=== PATIENT | male | born 1945 | race Caucasian/White ===

== ENCOUNTER 2017-08-27 10:27 | Outpatient (CLI) | payer MEDICARE, OTHER ==
[~2017-08-27] VITALS: Ht 182.9 cm; Wt 88.6 kg
[~2017-08-27 10:27] MED LIST: ACETAMINOPHEN500 M1 PO; BENADRYL25 MG PO; CELEBREX200 MG PO; CORDARONE200 MG PO; ELIQUIS5 MG PO; FERROUS SULFAT325 MG PO; FLUTICASONE PRO16 GM NASAL; GINGER500 MG PO; GLUCOSAMINE & C1 CAP PO; HEMOCYTE PLUS C1 CAP PO; HYDROCORTISO28.35 G1 TOPICAL; KLOR-CON M2020 MEQ PO; LAMISIL250 MG PO; LASIX20 MG PO; MIRAPEX0.125 MG PO; MULTI-DAY VITAM1 TAB PO; OCUVITE TABLET1 TA1 PO; OSTEO BI-FLEX1 EAC1 PO; PRAVACHOL20 MG PO; PROTONIX40 MG PO; RELAFEN500 MG PO; SYSTANE 0.3-0.4%5 ML EACH EYE; TYLENOL 8 HOUR650 MG PO; VITAMIN D31000 UNIT PO
[2017-08-27 11:36] VITALS: BP 133/67; Ht 182.9 cm; Wt 88.6 kg
== END 2017-08-27 13:02 | disposition home or self-care (01) ==
LOC: D.OPS 10:27
DX: Z95.2 Presence of prosthetic heart valve (principal)

== ENCOUNTER 2017-09-12 12:54 | Outpatient (CLI) | payer MEDICARE, OTHER ==
[~2017-09-12] VITALS: Ht 182.9 cm; Wt 88.6 kg
[2017-09-12 14:01] VITALS: Ht 182.9 cm; Wt 88.6 kg
== END 2017-09-12 16:00 | disposition home or self-care (01) ==
LOC: D.OPS 12:54
DX: Z95.2 Presence of prosthetic heart valve (principal)

== ENCOUNTER 2018-08-26 10:42 | Outpatient (CLI) | payer MEDICARE, OTHER ==
[~2018-08-26] VITALS: Ht 182.9 cm; Wt 79.1 kg
[2018-08-26 11:58] VITALS: BP 128/63; Ht 182.9 cm; Wt 79.1 kg
== END 2018-08-26 14:23 | disposition home or self-care (01) ==
LOC: D.OPS 10:42
DX: Z95.2 Presence of prosthetic heart valve (principal)

== ENCOUNTER → 2019-07-29 08:09 | Outpatient (CLI) | payer MEDICARE, OTHER ==
[2018-08-26 11:58] VITALS: BMI 23.6
== END | disposition home or self-care (01) ==
LOC: D.HCCECHO 08:09
PROVIDERS: ATTEND Internal Medicine Cardiovascular Disease
DX: I34.0 Nonrheumatic mitral (valve) insufficiency (principal)